=== PATIENT | male | born 1945 | race Caucasian/White ===

== ENCOUNTER 2023-06-01 19:50 | Observation (INO) | payer MEDICARE ==
--- NOTE | 2023-06-01 20:18 | ED ---
Abdominal Pain HPI - General Chief Complaint: Abdominal Pain Stated Complaint: Constipation unable to urinate Time Seen by Provider: 06/01/23 20:06 Source: patient Mode of arrival: ambulatory Limitations: no limitations - History of Present Illness Initial Comments: 78-year-old male presenting with chief complaint of constipation. Patient states that his last bowel movement was 4 days ago. He has been taking stool softeners at home with no relief. No nausea or vomiting. States that today he has not been able to urinate. No fevers or chills. No chest pain or difficulty breathing. - Related Data Home Medications Medication Instructions Recorded Confirmed Lovastatin [Mevacor] 10 mg PO HS 06/01/23 06/01/23 lisinopriL [Zestril] 10 mg PO DAILY 06/01/23 06/01/23 Allergies Allergy/AdvReac Type Severity Reaction Status Date / Time No Known Allergies Allergy Verified 06/01/23 22:27 Review of Systems ROS Statement: Those systems with pertinent positive or pertinent negative responses have been documented in the HPI. ROS Other: All systems not noted in ROS Statement are negative. Past Medical History Past Medical History: Hypertension Past Surgical History: Cholecystectomy Additional Past Surgical History / Comment(s): colonoscopy 04/2023 Smoking Status: Never smoker Past Alcohol Use History: None Reported Past Drug Use History: None Reported General Exam Limitations: no limitations General appearance: alert, in no apparent distress Head exam: Present: atraumatic, normocephalic Eye exam: Present: normal appearance Neck exam: Present: normal inspection Respiratory exam: Absent: respiratory distress GI/Abdominal exam: Present: soft. Absent: distended, tenderness, guarding, rebound, rigid Neurological exam: Present: alert, oriented X3 Psychiatric exam: Present: normal affect, normal mood Skin exam: Present: warm, dry Course Vital Signs 06/01/23 06/01/23 06/01/23 19:53 22:07 23:05 Temperature 98.0 F Pulse Rate 125 H 116 H 141 H Respiratory 18 18 16 Rate Blood Pressure 103/71 86/68 103/88 O2 Sat by Pulse 97 100 Oximetry 06/01/23 06/02/23 23:32 02:37 Temperature Pulse Rate 97 85 Respiratory 16 16 Rate Blood Pressure 91/60 85/63 O2 Sat by Pulse 98 97 Oximetry Medical Decision Making - Medical Decision Making Was pt. sent in by a medical professional or institution (LINDSAY Marcelo, DOORPERSON, urgent care, hospital, or half-way...) When possible be specific @ -No Did you speak to anyone other than the patient for history (EMS, parent, family, police, friend...)? What history was obtained from this source @ -No Did you review nursing and triage notes (agree or disagree)? Why? @ -I reviewed and agree with nursing and triage notes Were old charts reviewed (outside hosp., previous admission, EMS record, old EKG, old radiological studies, urgent care reports/EKG's, half-way records)? Report findings @ -No old charts were reviewed Differential Diagnosis (chest pain, altered mental status, abdominal pain women, abdominal pain men, vaginal bleeding, weakness, fever, dyspnea, syncope, headache, dizziness, GI bleed, back pain, seizure, CVA, palpatations, mental health, musculoskeletal)? @ -MDM Differential Abdominal Pain Men: Appendicitis, cholecystitis, diverticulosis, ischemic bowel, pancreatitis, hepatitis, UTI, gastroenteritis, AAA, incarcerated hernia, bowel obstruction, co nstipation, inflammatory bowel, hepatitis, peptic ulcer disease, splenic infarction, perforated viscus, testicular torsion... This is not meant to be an all-inclusive list EKG interpreted by me (3pts min.). @ -EKG shows atrial fibrillation with rapid ventricular response. Ventricular rate 110. VA interval indeterminable. QRS 99. QT 352. QTc 417. X-rays interpreted by me (1pt min.). @ -KUB x-ray shows nonspecific abdomen without evidence of free air or obstruction. Chest x-ray shows no acute cardiopulmonary process. CT interpreted by me (1pt min.). @ -None done U/S interpreted by me (1pt. min.). @ -None done What testing was considered but not performed or refused? (CT, X-rays, U/S, labs)? Why? @ -None What meds were considered but not given or refused? Why? @ -None Did you discuss the management of the patient with other professionals (professionals i.e. LINDSAY Marcelo, DOORPERSON, lab, RT, psych nurse, social media sr strategy manager, program services assistant, teacher, chief accounting officer, case aide)? Give summary @ -I spoke with Dalia Eason from [facility] who accepted admission Was smoking cessation discussed for >3mins.? @ -No Was critical care preformed (if so, how long)? @ -No Were there social determinants of health that impacted care today? How? (Homelessness, low income, unemployed, alcoholism, drug addiction, transportation, low edu. Level, literacy, decrease access to med. care, mcc, rehab)? @ -No Was there de-escalation of care discussed even if they declined (Discuss DNR or withdrawal of care, Hospice)? DNR status @ -No What co-morbidities impacted this encounter? (DM, HTN, Smoking, COPD, CAD, Canc er, CVA, ARF, Chemo, Hep., AIDS, mental health diagnosis, sleep apnea, morbid obesity)? @ -None Was patient admitted / discharged? Hospital course, mention meds given and route, prescriptions, significant lab abnormalities, going to OR and other pertinent info. @ -78-year-old male presenting with chief complaint of constipation. This has been ongoing for about 4 days. Today he was unable to urinate. Upon arrival the patient is tachycardic. EKG shows A-fib with RVR. Patient has no history of A-fib, he is not on any blood thinners or rate control medication. He is started on low-dose heparin. Bladder scan shows greater than 500 mL in the bladder. He is straight cathed and reports significant relief in symptoms. He is given an enema, does have a bowel movement. He will require admission for new onset A-fib. He is agreeable with this plan. I discussed this case with my attending Dr. Colvin Patient initially did not require any medication for rate control as he was maintaining in the 110s, however later in his course his heart rate increased to the 160s to 180s range. He was given 10 mg of Cardizem and started on a 5 mg/h Cardizem drip. Vital signs improved. Undiagnosed new problem with uncertain prognosis? @ -No Drug Therapy requiring intensive monitoring for toxicity (Heparin, Nitro, Insulin, Cardizem)? @ -Heparin and Cardizem Were any procedures done? @ -No Diagnosis/symptom? @ -New onset A-fib Acute, or Chronic, or Acute on Chronic? @ -Acute Uncomplicated (without systemic symptoms) or Complicated (systemic symptoms)? @ -Complicated Side effects of treatment? @ -No Exacerbation, Progression, or Severe Exacerbation? @ -No Poses a threat to life or bodily function? How? (Chest pain, [place], [place], pneumonia, PE, COPD, DKA, ARF, appy, cholecystitis, CVA, Diverticulitis, Homicidal, Suicidal, threat to staff... and all critical care pts) @ -Yes - Lab Data Result diagrams: 06/01/23 21:06 06/01/23 21:06 Lab Results 06/01/23 06/01/23 06/01/23 Range/Units 21:06 21:06 21:06 WBC 11.3 H (3.8-10.6) k/uL RBC 5.47 (4.30-5.90) m/uL Hgb 16.3 (13.0-17.5) gm/dL Hct 49.4 (39.0-53.0) % MCV 90.2 (80.0-100.0) fL MCH 29.7 (25.0-35.0) pg MCHC 33.0 (31.0-37.0) g/dL RDW 13.6 (11.5-15.5) % Plt Count 264 (150-450) k/uL MPV 7.2 Neutrophils % 83 % Lymphocytes % 8 % Monocytes % 7 % Eosinophils % 1 % Basophils % 0 % Neutrophils # 9.4 H (1.3-7.7) k/uL Lymphocytes # 0.9 L (1.0-4.8) k/uL Monocytes # 0.8 (0-1.0) k/uL Eosinophils # 0.1 (0-0.7) k/uL Basophils # 0.1 (0-0.2) k/uL Sodium 136 L (137-145) mmol/L Potassium 4.1 (3.5-5.1) mmol/L Chloride 104 (98-107) mmol/L Carbon Dioxide 19 L (22-30) mmol/L Anion Gap 13 mmol/L BUN 15 (9-20) mg/dL Creatinine 0.68 (0.66-1.25) mg/dL Est GFR (CKD-EPI)AfAm >90 (>60 ml/min/1.73 sqM) Est GFR (CKD-EPI)NonAf >90 (>60 ml/min/1.73 sqM) Glucose 115 H (74-99) mg/dL Calcium 9.4 (8.4-10.2) mg/dL Total Bilirubin 1.6 H (0.2-1.3) mg/dL AST 34 (17-59) U/L ALT 19 (4-49) U/L Alkaline Phosphatase 77 (38-126) U/L Troponin I <0.012 (0.000-0.034) ng/mL NT-Pro-B Natriuret Pep 51 pg/mL Total Protein 7.3 (6.3-8.2) g/dL Albumin 4.3 (3.5-5.0) g/dL TSH 1.760 (0.465-4.680) mIU/L Urine Color Urine Appearance (Clear) Urine pH (5.0-8.0) Ur Specific Hope (1.001-1.035) Urine Protein (Negative) Urine Glucose (UA) (Negative) Urine Ketones (Negative) Urine Blood (Negative) Urine Nitrite (Negative) Urine Bilirubin (Negative) Urine Urobilinogen (<2.0) mg/dL Ur Leukocyte Esterase (Negative) 06/01/23 Range/Units 21:56 WBC (3.8-10.6) k/uL RBC (4.30-5.90) m/uL Hgb (13.0-17.5) gm/dL Hct (39.0-53.0) % MCV (80.0-100.0) fL MCH (25.0-35.0) pg MCHC (31.0-37.0) g/dL RDW (11.5-15.5) % Plt Count (150-450) k/uL MPV Neutrophils % % Lymphocytes % % Monocytes % % Eosinophils % % Basophils % % Neutrophils # (1.3-7.7) k/uL Lymphocytes # (1.0-4.8) k/uL Monocytes # (0-1.0) k/uL Eosinophils # (0-0.7) k/uL Basophils # (0-0.2) k/uL Sodium (137-145) mmol/L Potassium (3.5-5.1) mmol/L Chloride (98-107) mmol/L Carbon Dioxide (22-30) mmol/L Anion Gap mmol/L BUN (9-20) mg/dL Creatinine (0.66-1.25) mg/dL Est GFR (CKD-EPI)AfAm (>60 ml/min/1.73 sqM) Est GFR (CKD-EPI)NonAf (>60 ml/min/1.73 sqM) Glucose (74-99) mg/dL Calcium (8.4-10.2) mg/dL Total Bilirubin (0.2-1.3) mg/dL AST (17-59) U/L ALT (4-49) U/L Alkaline Phosphatase (38-126) U/L Troponin I (0.000-0.034) ng/mL NT-Pro-B Natriuret Pep pg/mL Total Protein (6.3-8.2) g/dL Albumin (3.5-5.0) g/dL TSH (0.465-4.680) mIU/L Urine Color Light Yellow Urine Appearance Clear (Clear) Urine pH 6.0 (5.0-8.0) Ur Specific Hope 1.015 (1.001-1.035) Urine Protein Negative (Negative) Urine Glucose (UA) Negative (Negative) Urine Ketones Trace H (Negative) Urine Blood Negative (Negative) Urine Nitrite Negative (Negative) Urine Bilirubin Negative (Negative) Urine Urobilinogen <2.0 (<2.0) mg/dL Ur Leukocyte Esterase Negative (Negative) Disposition Clinical Impression: New onset a-fib Disposition: ADMITTED IP TO THIS HOSP Condition: Fair Time of Disposition: 22:21
--- NOTE | 2023-06-01 20:50 | XR ---
KUB. HISTORY: Abdominal pain. COMPARISON: None. TECHNIQUE: 2 upright views the abdomen obtained FINDINGS: The lung bases are clear. There is no free intraperitoneal air beneath the diaphragm. The bowel gas pattern is nonspecific and there is no evidence of obstruction. No suspicious abdominal or pelvic calcifications are seen. There are clips in the right upper quadrant consistent with cholecystectomy. There is moderate dextrorotary scoliosis of the lumbar spine. 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 IMPRESSION: Nonspecific abdomen without evidence of free air or obstruction.
[2023-06-01 21:16] LABS: Basophils # (A) 0.1 k/uL (0-0.2); Basophils % (A) 0 %; Eosinophils # (A) 0.1 k/uL (0-0.7); Eosinophils % (A) 1 %; HCT 49.4 % (39.0-53.0); HGB 16.3 gm/dL (13.0-17.5); Lymphocytes # (A) 0.9 k/uL (1.0-4.8); Lymphocytes % (A) 8 %; MCH 29.7 pg (25.0-35.0); MCV 90.2 fL (80.0-100.0); Mean Platelet Volume 7.2; Monocytes # (A) 0.8 k/uL (0-1.0); Monocytes % (A) 7 %; Neutrophils # (A) 9.4 k/uL (1.3-7.7); Neutrophils % (A) 83 %; Platelet Count 264 k/uL (150-450); RBC 5.47 m/uL (4.30-5.90); RDW 13.6 % (11.5-15.5); WBC 11.3 k/uL (3.8-10.6)
[2023-06-01 21:25] LABS: ALT 19 U/L (4-49); African American GFR (CKD) >90 (>60 ml/min/1.73 sqM); Albumin 4.3 g/dL (3.5-5.0); Anion Gap 13 mmol/L; Blood Urea Nitrogen 15 mg/dL (9-20); Calcium 9.4 mg/dL (8.4-10.2); Carbon Dioxide 19 mmol/L (22-30); Chloride 104 mmol/L (98-107); Glucose 115 mg/dL (74-99); Non-African American GFR(CKD) >90 (>60 ml/min/1.73 sqM); Sodium 136 mmol/L (137-145); Total Bilirubin 1.6 mg/dL (0.2-1.3); Total Protein 7.3 g/dL (6.3-8.2)
--- NOTE | 2023-06-01 21:25 | XR ---
EXAMINATION TYPE: XR chest 2V DATE OF EXAM: 06/01/2023 COMPARISON: NONE HISTORY: New onset atrial fibrillation TECHNIQUE: Frontal and lateral views of the chest are obtained. FINDINGS: There is no focal air space opacity, pleural effusion, or pneumothorax seen. The cardiac silhouette size is within normal limits. The osseous structures are intact. IMPRESSION: No acute cardiopulmonary process.
[2023-06-01 21:28] LABS: AST 34 U/L (17-59); Alkaline Phosphatase 77 U/L (38-126); Potassium 4.1 mmol/L (3.5-5.1)
[2023-06-01 21:34] LABS: NT-Pro-B-Type Natriuretic Pept 51 pg/mL
[2023-06-01] MEDS: SODIUM CHLORIDE 0.9% 500 ML 500 ML IV ONE (21:48)
[2023-06-01 22:08] LABS: Appearance,Urine Clear (Clear); Bilirubin,Urine Negative (Negative); Blood,Urine Negative (Negative); Color,Urine Light Yellow; Glucose,Urine (UA) Negative (Negative); Ketones,Urine Trace (Negative); Leukocyte Esterase,Urine Negative (Negative); Nitrite,Urine Negative (Negative); Protein,Urine Negative (Negative); Specific Gravity,Urine 1.015 (1.001-1.035); Urobilinogen,Urine <2.0 mg/dL (<2.0)
[2023-06-01] MEDS: SODIUM CHLORIDE 0.9% 1,000 ML IV STA (22:11)
[2023-06-01] MEDS ORDERED: HEPARIN SODIUM 1,000 UN/ML (10ML VL) IV PRN (22:11)
[2023-06-01] MEDS ORDERED: NALOXONE 0.4 MG/ML 1 ML VIAL IV PRN (22:27)
[2023-06-01] MEDS: HEPARIN SOD,PORK IN 0.45% NACL 25,000 UNIT in 0.45% NACL 1 250ML.BAG IV SCH (22:49)
[2023-06-01] MEDS: HEPARIN SODIUM 1,000 UN/ML (10ML VL) IV ONE (22:54)
[2023-06-01] MEDS: DILTIAZEM 125 MG in SODIUM CHLORIDE 0.9% 100 ML IV SCH (22:55)
[2023-06-01] MEDS: SODIUM CHLORIDE 0.9% 1,000 ML IV SCH (23:05)
[2023-06-01 23:07] LABS: Partial Thromboplastin Time 23.1 sec (22.0-30.0)
[2023-06-01] MEDS: DILTIAZEM DRIP BOLUS FROM BAG 1 MG SOLN IV ONE (23:27)
[2023-06-02 06:18] LABS: INR 1.1 (<1.2); Partial Thromboplastin Time 50.6 sec (22.0-30.0)
[2023-06-02 10:05] LABS: Basophils % (A) 1 %; Eosinophils # (A) 0.1 k/uL (0-0.7); Eosinophils % (A) 1 %; HCT 43.1 % (39.0-53.0); HGB 14.2 gm/dL (13.0-17.5); Lymphocytes # (A) 1.7 k/uL (1.0-4.8); Lymphocytes % (A) 18 %; MCH 30.5 pg (25.0-35.0); MCV 92.7 fL (80.0-100.0); Mean Platelet Volume 7.7; Monocytes # (A) 0.8 k/uL (0-1.0); Monocytes % (A) 9 %; Neutrophils # (A) 6.5 k/uL (1.3-7.7); Neutrophils % (A) 70 %; Platelet Count 238 k/uL (150-450); RBC 4.65 m/uL (4.30-5.90); RDW 13.5 % (11.5-15.5); WBC 9.3 k/uL (3.8-10.6)
[2023-06-02] MEDS: DOCUSATE 100 MG CAP PO SCH (12:23)
[2023-06-02] MEDS: APIXABAN 5 MG TAB PO SCH (12:24)
[2023-06-02] MEDS: polyethylene glycoL 3350 17 GM POWD.PACK PO SCH (12:24)
[2023-06-02] MEDS: METOPROLOL TARTRATE 25 MG TAB PO SCH (12:24)
--- NOTE | 2023-06-02 12:48 | P.CRDCN ---
History of Present Illness History of present illness: HISTORY OF PRESENT ILLNESS: This is a 78-year-old male with a past medical history significant for hypertension and hyperlipidemia. Patient does not follow with a education department registrar. We have been asked to see the patient in consultation for new onset atrial fibrillation. Patient examined at the bedside. Patient initially presented to the hospital with a chief complaint of constipation and inability to urinate. Patient denies having any chest pain or pressure. He denies any shortness of breath. He denies having any palpitations. Initial EKG completed reveals sinus mechanism with PACs. Review of telemetry overnight did reveal episodes of atrial fibrillation. Bedside telemetry at the time of examination reveals sinus mechanism with a heart rate in the 70s. DIAGNOSTICS: - EKG reveals sinus mechanism with PVCs. Remote telemetry from overnight does reveal episodes of atrial fibrillation. - Chest xray negative for acute process - Laboratory data: WBC 11.3. Hemoglobin 16.3. Platelet count 264. Sodium 136. Potassium 4.1. BUN 15. Creatinine 0.68. Troponin negative x 1. proBNP 51. TSH 1.760. - Current home cardiac medications include lisinopril 10 mg daily and lovastatin 10 mg at night. - No previous echocardiogram, stress test, or cardiac catheterization available in EMR for review REVIEW OF SYSTEMS: At the time of my exam: CONSTITUTIONAL: Denies fever or chills. HEENT: Denies blurred vision, vision changes, or eye pain. Denies hemoptysis CARDIOVASCULAR: Denies chest pain. Denies orthopnea. Denies PND. Denies palpitations RESPIRATORY: Denies shortness of breath. GASTROINTESTINAL: Denies abdominal pain. Denies nausea or vomiting. HEMATOLOGIC: Denies bleeding disorders. GENITOURINARY: Denies any blood in urine. SKIN: Denies pruitis. Denies rash. PHYSICAL EXAM: VITAL SIGNS: Reviewed. GENERAL: Well-developed in no acute distress. HEENT: Head is normocephalic. Pupils are equal, round. Sclerae anicteric. Mucous membranes of the mouth are moist. Neck supple. No JVD or thyromegaly LUNGS: Respirations even and unlabored. Lungs essentially clear to auscultation bilaterally. HEART: Regular rate and rhythm. S1 and S2 heard. ABDOMEN: Soft. Nondistended. Nontender. EXTREMITIES: Normal range of motion. No clubbing or cyanosis. Peripheral pulses intact. No lower extremity edema NEUROLOGIC: Awake and alert. Oriented x 3. ASSESSMENT: New onset paroxysmal atrial fibrillation, currently maintaining sinus mechanism Sinus mechanism with PACs Constipation Urinary retention Hypertension Hyperlipidemia PLAN: Obtain 2D echo to assess cardiac structure and function Continue telemetry monitoring TSH checked and within normal limits Hold lisinopril secondary to soft blood pressures Discontinue IV heparin Begin Eliquis 5 mg twice a day Discontinue IV Cardizem Begin metoprolol tartrate 25 mg twice a day Patient may be discharged home this afternoon from a cardiac standpoint He is to follow-up postdischarge with Dr. Mathews Further recommendations pending patient course Nurse practitioner note has been reviewed by physician. Signing provider agrees with the documented findings, assessment, and plan of care documented by EMBOSSER APPRENTICE as a scribe. Past Medical History Past Medical History: Hypertension Past Surgical History: Cholecystectomy Additional Past Surgical History / Comment(s): colonoscopy 04/2023 Smoking Status: Never smoker Past Alcohol Use History: None Reported Past Drug Use History: None Reported Medications and Allergies Home Medications Medication Instructions Recorded Confirmed Type Lovastatin [Mevacor] 10 mg PO HS 06/01/23 06/01/23 History Allergies Allergy/AdvReac Type Severity Reaction Status Date / Time No Known Allergies Allergy Verified 06/01/23 22:27 Physical Exam Vitals: Vital Signs Temp Pulse Resp BP Pulse Ox 06/02/23 07:24 98.2 F 94 14 96/61 97 06/02/23 06:04 93 16 103/68 96 06/02/23 03:50 85 16 90/61 97 06/02/23 02:37 85 16 85/63 97 06/01/23 23:32 97 16 91/60 98 06/01/23 23:05 141 H 16 103/88 06/01/23 22:07 116 H 18 86/68 100 06/01/23 19:53 98.0 F 125 H 18 103/71 97 Intake and Output 06/01/23 06/02/23 06/02/23 22:59 06:59 14:59 Output Total 1429 450 Balance -1429 -450 Output: Urine 700 450 Straight 700 Uretheral (Black) 450 Post Void Residual 729 Other: Voiding Method Diaper Weight 82.554 kg Results 06/02/23 07:32 06/01/23 21:06 Cardiac Enzymes 06/01/23 06/01/23 Range/Units 21:06 21:06 AST 34 (17-59) U/L Troponin I <0.012 (0.000-0.034) ng/mL Coagulation 06/01/23 06/02/23 Range/Units 22:43 04:11 PT 11.0 12.0 (10.0-12.5) sec APTT 23.1 50.6 H (22.0-30.0) sec CBC 06/01/23 Range/Units 21:06 WBC 11.3 H (3.8-10.6) k/uL RBC 5.47 (4.30-5.90) m/uL Hgb 16.3 (13.0-17.5) gm/dL Hct 49.4 (39.0-53.0) % Plt Count 264 (150-450) k/uL Comprehensive Metabolic Panel 06/01/23 Range/Units 21:06 Sodium 136 L (137-145) mmol/L Potassium 4.1 (3.5-5.1) mmol/L Chloride 104 (98-107) mmol/L Carbon Dioxide 19 L (22-30) mmol/L BUN 15 (9-20) mg/dL Creatinine 0.68 (0.66-1.25) mg/dL Glucose 115 H (74-99) mg/dL Calcium 9.4 (8.4-10.2) mg/dL AST 34 (17-59) U/L ALT 19 (4-49) U/L Alkaline Phosphatase 77 (38-126) U/L Total Protein 7.3 (6.3-8.2) g/dL Albumin 4.3 (3.5-5.0) g/dL Current Medications Generic Name Dose Route Start Last Admin Trade Name Freq PRN Reason Stop Dose Admin Heparin Sodium (Porcine) 0 unit 06/01/23 22:11 Heparin Sodium 1,000 Un/Ml (10ml Vl) IV PER PROTOCOL PRN Low PTT Protocol Heparin Sodium/Sodium Chloride 250 mls @ 9.906 mls/hr 06/01/23 22:15 06/01/23 22:49 25,000 unit/ Sodium Chloride IV 12 units/kg/hr .Q24H [place] 9.906 mls/hr Administration Protocol 12 UNITS/KG/HR Sodium Chloride 1,000 mls @ 130 mls/hr 06/01/23 22:30 06/02/23 08:08 Saline 0.9% IV 130 mls/hr .Q7H42M [place] Administration Diltiazem HCl 125 mg/ Sodium 125 mls @ 5 mls/hr 06/01/23 22:30 06/01/23 22:55 Chloride IV 5 mg/hr .Q24H [place] 5 mls/hr Administration 5 MG/HR Naloxone HCl 0.2 mg 06/01/23 22:27 Naloxone 0.4 Mg/Ml 1 Ml Vial IV Q2M PRN Opioid Reversal Intake and Output 06/01/23 06/02/23 06/02/23 22:59 06:59 14:59 Output Total 1429 450 Balance -1429 -450 Output: Urine 700 450 Straight 700 Uretheral (Black) 450 Post Void Residual 729 Other: Voiding Method Diaper Weight 82.554 kg 06/01/23 21:06 06/01/23 21:06
--- NOTE | 2023-06-02 13:36 | P.HPIM ---
History of Present Illness H&P Date: 06/02/23 History of present illness; patient is a 78-year-old gentleman past medical history significant for hypertension, hyperlipidemia who was brought to the ER for constipation. Patient stated that he was all right 4 days back when he started noticing that he was getting constipation. Patient was passing gas but not having any bowel movement. There was no complaint of abdominal pain. Patient denies any nausea or vomiting. Patient was also having a hard time peeing. There was no complaint of burning micturition. Patient did use elak-eki-mdykept stool softeners without any success. Because of this, patient came to the ER Initial lab work done in the ER showed WBC 11.3, hemoglobin 16.3, platelet count 264, sodium 136, potassium 4.1, BUN 15, creatinine 0.68, troponin 0.012 UA negative for any infection EKG done in the ER showed heart rate of 110, no P waves, irregular, no ST segment elevation or depression seen, no T-wave inversions seen. Chest x-ray done in the ER showed no acute cardiopulmonary process X-ray KUB done showed nonspecific abdomin without evidence of free air or obstruction Patient admitted to internal medicine service REVIEW OF SYSTEMS: CONSTITUTIONAL: No fever, no malaise, no fatigue. HEENT: No recent visual problems or hearing problems. Denied any sore throat. CARDIOVASCULAR: No chest pain, orthopnea, PND, no palpitations, no syncope. PULMONARY: No shortness of breath, no cough, no hemoptysis. GASTROINTESTINAL: As mentioned above NEUROLOGICAL: No headaches, no weakness, no numbness. HEMATOLOGICAL: Denies any bleeding or petechiae. GENITOURINARY: Denies any burning micturition, frequency, or urgency. MUSCULOSKELETAL/RHEUMATOLOGICAL: Denies any joint pain, swelling, or any muscle pain. ENDOCRINE: Denies any polyuria or polydipsia. The rest of the 14-point review of systems is negative. PHYSICAL EXAMINATION: GENERAL: The patient is alert and oriented x3, not in any acute distress. Well developed, well nourished. HEENT: Pupils are round and equally reacting to light. EOMI. No scleral icterus. No conjunctival pallor. Normocephalic, atraumatic. No pharyngeal erythema. No thyromegaly. CARDIOVASCULAR: S1 and S2 present. No murmurs, rubs, or gallops. irRegular rate and rhythm PULMONARY: Chest is clear to auscultation, no wheezing or crackles. ABDOMEN: Soft, nontender, nondistended, normoactive bowel sounds. No palpable organomegaly. MUSCULOSKELETAL: No joint swelling or deformity. EXTREMITIES: No cyanosis, clubbing, or pedal edema. NEUROLOGICAL: Gross neurological examination did not reveal any focal deficits. SKIN: No rashes. Assessment and plan Paroxysmal atrial fibrillation Constipation Hypertension Hyperlipidemia Monitor vital signs Monitor CBC Monitor CMP Continue telemetry monitoring Trend troponin. Ordered 2D echo Continue pharmacy to dose heparin Continue Cardizem drip Aggressive bowel regimen Consult cardiology Labs and medication were reviewed.. Continue same treatment. Continue with symptomatic treatment. Resume home medication. Monitor labs and vitals. DVT and GI prophylaxis. Further recommendations as per clinical course of the patient Dictation was produced using [employer] dictation software. please excuse any grammatical, word or spelling errors. Past Medical History Past Medical History: Hypertension Past Surgical History: Cholecystectomy Additional Past Surgical History / Comment(s): colonoscopy 04/2023 Smoking Status: Never smoker Past Alcohol Use History: None Reported Past Drug Use History: None Reported Medications and Allergies Home Medications Medication Instructions Recorded Confirmed Type Lovastatin [Mevacor] 10 mg PO HS 06/01/23 06/01/23 History Allergies Allergy/AdvReac Type Severity Reaction Status Date / Time No Known Allergies Allergy Verified 06/01/23 22:27 Physical Exam Vitals: Vital Signs Temp Pulse Resp BP Pulse Ox 06/02/23 11:01 98.0 F 64 16 99/62 96 06/02/23 07:24 98.2 F 94 14 96/61 97 06/02/23 06:04 93 16 103/68 96 06/02/23 03:50 85 16 90/61 97 06/02/23 02:37 85 16 85/63 97 06/01/23 23:32 97 16 91/60 98 06/01/23 23:05 141 H 16 103/88 06/01/23 22:07 116 H 18 86/68 100 06/01/23 19:53 98.0 F 125 H 18 103/71 97 Intake and Output 06/01/23 06/02/23 06/02/23 22:59 06:59 14:59 Output Total 1429 450 Balance -1429 -450 Output: Urine 700 450 Straight 700 Uretheral (Black) 450 Post Void Residual 729 Other: Voiding Method Diaper Weight 82.554 kg Results CBC & Chem 7: 06/02/23 07:32 06/01/23 21:06 Labs: Abnormal Lab Results - Last 24 Hours (Table) 06/01/23 06/01/23 06/01/23 Range/Units 21:06 21:06 21:56 WBC 11.3 H (3.8-10.6) k/uL Neutrophils # 9.4 H (1.3-7.7) k/uL Lymphocytes # 0.9 L (1.0-4.8) k/uL APTT (22.0-30.0) sec Sodium 136 L (137-145) mmol/L Carbon Dioxide 19 L (22-30) mmol/L Glucose 115 H (74-99) mg/dL Total Bilirubin 1.6 H (0.2-1.3) mg/dL Urine Ketones Trace H (Negative) 06/02/23 Range/Units 04:11 WBC (3.8-10.6) k/uL Neutrophils # (1.3-7.7) k/uL Lymphocytes # (1.0-4.8) k/uL APTT 50.6 H (22.0-30.0) sec Sodium (137-145) mmol/L Carbon Dioxide (22-30) mmol/L Glucose (74-99) mg/dL Total Bilirubin (0.2-1.3) mg/dL Urine Ketones (Negative)
[2023-06-02] MEDS: ATORVASTATIN 40 MG TAB PO SCH (20:17)
[2023-06-02] MEDS ORDERED: ATORVASTATIN 10 MG TAB PO SCH (21:00)
--- NOTE | 2023-06-03 02:22 | CA ---
Transthoracic Echo Report Name: Demond Easton Age: 78 Gender: M : 1945 Exam Date: 06/02/2023 10:34 Exam Location: [facility] Ht (in): 68 Wt (lb): 182 Ordering Physician: Helga Rankin Attending/Referring Phys: [employer] Susan Melendez RDCS Procedure CPT: Indications: LV function Cardiac Hx: Technical Quality: Contrast 1: Definity Total Dose (mL): 2 Contrast 2: Total Dose (mL): MEASUREMENTS (Male / Female) Normal Values 2D ECHO LV Diastolic Diameter PLAX 3.6 cm 4.2 - 5.9 / 3.9 - 5.3 cm LV Systolic Diameter PLAX 2.7 cm IVS Diastolic Thickness 0.9 cm 0.6 - 1.0 / 0.6 - 0.9 cm LVPW Diastolic Thickness 1.0 cm 0.6 - 1.0 / 0.6 - 0.9 cm LV Relative Wall Thickness 0.5 LVOT Diameter 1.9 cm Aortic Root Diameter 4.1 cm LA Systolic Diameter LX 3.6 cm 3.0 - 4.0 / 2.7 - 3.8 cm DOPPLER AV Peak Velocity 159.4 cm/s AV Peak Gradient 10.2 mmHg AV Mean Velocity 102.4 cm/s AV Mean Gradient 4.8 mmHg AV Velocity Time Integral 29.8 cm LVOT Peak Velocity 123.3 cm/s LVOT Peak Gradient 6.1 mmHg LVOT Velocity Time Integral 24.3 cm LVOT Stroke Volume 69.9 cm??? LVOT Stroke Volume Index 35.6 ml/m??? AV Area Cont Eq vti 2.3 cm??? AV Area Cont Eq pk 2.2 cm??? Mitral E Point Velocity 68.3 cm/s Mitral A Point Velocity 76.3 cm/s Mitral E to A Ratio 0.9 MV Deceleration Time 230.9 ms MV E' Velocity 12.6 cm/s Mitral E to MV E' Ratio 5.4 TR Peak Velocity 201.7 cm/s TR Peak Gradient 16.3 mmHg PV Peak Velocity 67.8 cm/s PV Peak Gradient 1.8 mmHg FINDINGS Left Ventricle Normal Left ventricular size, wall thickness, systolic function with no obvious regional wall motion abnormalities. Normal Left ventricular diastolic filling pattern. Left ventricular ejection fraction is estimated at 55%. Right Ventricle Normal right ventricular size. Unable to estimate the right ventricular systolic pressure. Right Atrium Normal right atrial size. Left Atrium Normal left atrial size. Mitral Valve No mitral regurgitation. Aortic Valve Aortic valve not well visualized. Tricuspid Valve Mild tricuspid regurgitation. Pulmonic Valve Pulmonic valve not well visualized. Pericardium No pericardial effusion. Aorta Normal size aortic root. CONCLUSIONS Technically difficult study Left ventricular ejection fraction 55% No mitral regurgitation Mild tricuspid regurgitation RVSP 16 Previewed by: Dr. Julian Mathews DO (Electronically Signed) Final Date: 03 June 2023 02:21
--- NOTE | 2023-06-03 12:34 | P.GSCN ---
History of Present Illness Consult date: 06/03/23 History of present illness: 78-year-old gentleman was brought into the hospital for constipation. He has cardiac issues. I was asked to see the patient for urinary retention. The patient is interviewed at the bedside. Historically the patient states that for the last 6 months he has had problems urinating. He has had urgent urination, postvoid dribbling and urgency incontinence. He has been wearing a depends. Had any treatment for this problem to date. He was catheterized for 450 mL of urine and felt relief. His constipation has been relieved. There is no family history of prostate problems. He states that he has had a PSA in the past and has never been told that it was abnormal. There is no history urine infection. There is no family history of prostate problems. His urine is clear. He has not had a prostate examination some time. He has never seen a urologist. Review of Systems All systems: negative - Constitutional Denies fever, Denies weight loss - EENT Eyes: denies blurred vision Ears, nose, mouth and throat: Denies dysphagia - Cardiovascular Denies chest pain, Denies shortness of breath - Respiratory Denies cough, Denies 7 - Gastrointestinal Reports as per HPI - Genitourinary Denies dysuria, Denies hematuria - Integumentary Denies rash, Denies unusual bruising - Neurological Denies headaches, Denies syncope - Hematologic/Lymphatic Denies easy bleeding, Denies easy bruising 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 History of Any Multi-Drug Resistant Organisms: None Reported Past Surgical History: Cholecystectomy, Hernia Repair, Orthopedic Surgery Additional Past Surgical History / Comment(s): colonoscopy 04/2023, back surgery x2, rhinoplasty Past Anesthesia/Blood Transfusion Reactions: No Reported Reaction Past Psychological History: No Psychological Hx Reported Smoking Status: Never smoker Past Alcohol Use History: None Reported Past Drug Use History: None Reported - Past Family History Father Family Medical History: Cancer Additional Family Medical History / Comment(s): jaw CA Mother Family Medical History: Cancer Additional Family Medical History / Comment(s): uterine CA Medications and Allergies Home Medications Medication Instructions Recorded Confirmed Type Lovastatin [Mevacor] 10 mg PO HS 06/01/23 06/01/23 History Allergies Allergy/AdvReac Type Severity Reaction Status Date / Time No Known Allergies Allergy Verified 06/01/23 22:27 Surgical - Exam Vital Signs Temp Pulse Resp BP Pulse Ox 98.0 F 125 H 18 103/71 97 06/01/23 19:53 06/01/23 19:53 06/01/23 19:53 06/01/23 19:53 06/01/23 19:53 - General well developed, well nourished, no distress - Eyes normal ocular movement, no icteric - ENT no hearing loss, no congestion - Neck no masses, trachea midline - Respiratory normal respiratory effort, clear to auscultation - Abdomen Abdomen: soft, non tender, no guarding, no rigid, no rebound - Genitourinary Indwelling catheter. 20-30 g benign prostate - Integumentary no rash, no abnormal pigmentation - Neurologic no disoriented, no combative - Psychiatric oriented to time, oriented to person, oriented to place, speech is normal, memory intact Results - Labs 06/02/23 07:32 06/01/23 21:06 Assessment and Plan Assessment: Impression: Constipation. Urinary retention. Cardiac issues. BPH with obstruction Recommendations: I will start the patient on tamsulosin. The catheter can be removed in 2-3 days for voiding trial. It sounds as if he is a chronic outlet obstruction will benefit from the tamsulosin if he is able to urinate which I suspect he will. We will follow with you.
[2023-06-03 12:53] VITALS: RESP 16
--- NOTE | 2023-06-03 14:11 | P.PN ---
Subjective Progress Note Date: 06/03/23 patient is a 78-year-old gentleman past medical history significant for hypertension, hyperlipidemia who was brought to the ER for constipation. Patient stated that he was all right 4 days back when he started noticing that he was getting constipation. Patient was passing gas but not having any bowel movement. There was no complaint of abdominal pain. Patient denies any nausea or vomiting. Patient was also having a hard time peeing. There was no complaint of burning micturition. Patient did use [id number] stool softeners without any success. Because of this, patient came to the ER Initial lab work done in the ER showed WBC 11.3, hemoglobin 16.3, platelet count 264, sodium 136, potassium 4.1, BUN 15, creatinine 0.68, troponin 0.012 UA negative for any infection EKG done in the ER showed heart rate of 110, no P waves, irregular, no ST segment elevation or depression seen, no T-wave inversions seen. Chest x-ray done in the ER showed no acute cardiopulmonary process X-ray KUB done showed nonspecific abdomin without evidence of free air or obstruction Patient admitted to internal medicine service 06/02. Patient seen and examined blood work done this morning showed WBC 9.3, hemoglobin 14.2, platelet count 238. 2D echo done showed LVEF of 55%, no mitral regurg, mild tricuspid regurg .denies any palpitation. Patient had complained of urine retention, had a Black placed. REVIEW OF SYSTEMS: CONSTITUTIONAL: No fever, no malaise,. CARDIOVASCULAR: No chest pain, no palpitations, no syncope. PULMONARY: No shortness of breath, no cough, GASTROINTESTINAL: No diarrhea, no nausea, no vomiting, no abdominal pain. NEUROLOGICAL: No headaches, no weakness, PHYSICAL EXAMINATION: GENERAL: The patient is alert and oriented x3, not in any acute distress. Well developed, well nourished. HEENT: Pupils are round and equally reacting to light. EOMI. No scleral icterus. No conjunctival pallor. Normocephalic, atraumatic. No pharyngeal erythema. No thyromegaly. CARDIOVASCULAR: S1 and S2 present. No murmurs, rubs, or gallops. PULMONARY: Chest is clear to auscultation, no wheezing or crackles. ABDOMEN: Soft, nontender, nondistended, normoactive bowel sounds. No palpable or ganomegaly. MUSCULOSKELETAL: No joint swelling or deformity. EXTREMITIES: No cyanosis, clubbing, or pedal edema. NEUROLOGICAL: Gross neurological examination did not reveal any focal deficits. SKIN: No rashes. Assessment and plan Paroxysmal atrial fibrillation Constipation Hypertension Hyperlipidemia Urinary retention Monitor vital signs Monitor CBC Monitor CMP Continue telemetry monitoring Trend troponin. 2D echo done showed LVEF of 55%, no mitral regurg, mild tricuspid regurg Continue Eliquis Continue Lopressor Aggressive bowel regimen Cardiology following Urology consulted Labs and medication were reviewed.. Continue same treatment. Continue with symptomatic treatment. Resume home medication. Monitor labs and vitals. DVT and GI prophylaxis. Further recommendations as per clinical course of the patient Dictation was produced using [employer] dictation software. please excuse any grammatical, word or spelling errors. Objective - Vital Signs Vital signs: Vital Signs Temp 98.3 F 06/03/23 03:27 Pulse 67 06/03/23 03:27 Resp 15 06/03/23 03:27 BP 104/62 06/03/23 03:27 Pulse Ox 94 L 06/03/23 03:27 FiO2 Intake & Output 06/02/23 06/03/23 06/03/23 18:59 06:59 18:59 Intake Total 476 Output Total 1100 Balance -1100 476 Weight 82.554 kg Intake: Oral 476 Output: Urine 1100 Other: Voiding Method Indwelling Catheter Indwelling Catheter - Labs CBC & Chem 7: 06/02/23 07:32 06/01/23 21:06
--- NOTE | 2023-06-03 14:32 | P.PN ---
Subjective Progress Note Date: 06/03/23 HISTORY OF PRESENT ILLNESS: This is a 78-year-old male with a past medical history significant for hype rtension and hyperlipidemia. 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 We have been asked to see the patient in consultation for new onset atrial fibrillation. Patient examined at the bedside. Patient initially presented to the hospital with a chief complaint of constipation and inability to urinate. Patient denies having any chest pain or pressure. He denies any shortness of breath. He denies having any palpitations. Initial EKG completed reveals sinus mechanism with PACs. Review of telemetry overnight did reveal episodes of atrial fibrillation. Bedside telemetry at the time of examination reveals sinus mechanism with a heart rate in the 70s. DIAGNOSTICS: - EKG reveals sinus mechanism with PVCs. Remote telemetry from overnight does reveal episodes of atrial fibrillation. - Chest xray negative for acute process - Laboratory data: WBC 11.3. Hemoglobin 16.3. Platelet count 264. Sodium 136. Potassium 4.1. BUN 15. Creatinine 0.68. Troponin negative x 1. proBNP 51. TSH 1.760. - Current home cardiac medications include lisinopril 10 mg daily and lovastatin 10 mg at night. - No previous echocardiogram, stress test, or cardiac catheterization available in EMR for review 06/03/2023 He does not feel any a-fib. Heart rates controlled. He is feeling well today. ECHO shows EF 55%, mild tricuspid regurgitation. REVIEW OF SYSTEMS: At the time of my exam: CONSTITUTIONAL: Denies fever or chills. HEENT: Denies blurred vision, vision changes, or eye pain. Denies hemoptysis CARDIOVASCULAR: Denies chest pain. Denies orthopnea. Denies PND. Denies palpitations RESPIRATORY: Denies shortness of breath. GASTROINTESTINAL: Denies abdominal pain. Denies nausea or vomiting. HEMATOLOGIC: Denies bleeding disorders. GENITOURINARY: Denies any blood in urine. SKIN: Denies pruitis. Denies rash. PHYSICAL EXAM: VITAL SIGNS: Reviewed. GENERAL: Well-developed in no acute distress. HEENT: Head is normocephalic. Pupils are equal, round. Sclerae anicteric. Mucous membranes of the mouth are moist. Neck supple. LUNGS: Respirations even and unlabored. Lungs essentially clear to auscultation bilaterally. HEART: Regular rate and rhythm. S1 and S2 heard. ABDOMEN: Soft. Nondistended. Nontender. EXTREMITIES: Normal range of motion. No clubbing or cyanosis. Peripheral pulses intact. No lower extremity edema NEUROLOGIC: Awake and alert. Oriented x 3. ASSESSMENT: New onset paroxysmal atrial fibrillation, currently maintaining sinus mechanism Sinus mechanism with PACs Constipation Urinary retention Hypertension Hyperlipidemia PLAN: Echo with preserved EF. Continue telemetry monitoring. [id number] score is 3, recommend anticoagulation for stroke risk reduction, co ntinue Eliquis 5 mg twice a day. Metoprolol tartrate 25 mg twice a day. Patient may be discharged home from a cardiac standpoint. He is to follow-up post discharge with Dr. Mathews in 1-2 weeks. Nurse practitioner note has been reviewed by physician. Signing provider agrees with the documented findings, assessment, and plan of care documented by [employer] as a scribe. Objective - Vital Signs Vital signs: Vital Signs Temp 98 F 06/03/23 08:00 Pulse 73 06/03/23 12:00 Resp 16 06/03/23 12:00 BP 129/79 06/03/23 12:00 Pulse Ox 96 06/03/23 12:00 FiO2 Intake & Output 06/02/23 06/03/23 06/03/23 18:59 06:59 18:59 Intake Total 1134 Output Total 1100 1425 Balance -1100 -291 Weight 82.554 kg Intake: Oral 1134 Output: Urine 1100 1425 Other: Voiding Method Indwelling Catheter Indwelling Catheter Indwelling Catheter # Bowel Movements 1 - Labs CBC & Chem 7: 06/02/23 07:32 06/01/23 21:06
[2023-06-03] MEDS: TAMSULOSIN 0.4 MG CAP.ER.24H PO SCH (17:34)
[2023-06-04 07:16] VITALS: BP 116/74; PULSE 77; TEMP 98.8
--- NOTE | 2023-06-04 13:21 | P.DS ---
Providers Date of admission: 06/01/23 22:27 Expected date of discharge: 06/04/23 Attending physician: Madelyn Crook Consults: 06/01/23 22:21 Consult Physician Stat Consulting Provider: [facility] Consult Reason/Comments: New onset A-fib Do you want consulting provider notified?: Yes 06/03/23 08:41 Consult Physician Routine Consulting Provider: Leroy Yip Consult Reason/Comments: urinary retention Do you want consulting provider notified?: Yes Primary care physician: Sriram Solis Hospital Course: Discharge diagnoses; Paroxysmal atrial fibrillation Constipation Hypertension Hyperlipidemia Urinary retention Hospital course; patient is a 78-year-old gentleman past medical history significant for hypertension, hyperlipidemia who was brought to the ER for constipation. Patient stated that he was all right 4 days back when he started noticing that he was getting constipation. Patient was passing gas but not having any bowel movement. There was no complaint of abdominal pain. Patient denies any nausea or vomiting. Patient was also having a hard time peeing. There was no complaint of burning micturition. Patient did use [id number] stool softeners without any success. Because of this, patient came to the ER Initial lab work done in the ER showed WBC 11.3, hemoglobin 16.3, platelet count 264, sodium 136, potassium 4.1, BUN 15, creatinine 0.68, troponin 0.012 UA negative for any infection EKG done in the ER showed heart rate of 110, no P waves, irregular, no ST segment elevation or depression seen, no T-wave inversions seen. Chest x-ray done in the ER showed no acute cardiopulmonary process X-ray KUB done showed nonspecific abdomin without evidence of free air or obstruction Patient admitted to internal medicine service 06/03. Patient seen and examined. Patient was evaluated by cardiology, they recommend keeping patient on Eliquis and Lopressor. 2D echo done showed LVEF of 55%, no mitral regurg, mild tricuspid regurg. Patient was also seen by urology, recommend outpatient follow-up, patient started on Flomax PHYSICAL EXAMINATION: GENERAL: The patient is alert and oriented x3, not in any acute distress. Well developed, well nourished. HEENT: Pupils are round and equally reacting to light. EOMI. No scleral icterus. No conjunctival pallor. Normocephalic, atraumatic. No pharyngeal erythema. No thyromegaly. CARDIOVASCULAR: S1 and S2 present. No murmurs, rubs, or gallops. PULMONARY: Chest is clear to auscultation, no wheezing or crackles. ABDOMEN: Soft, nontender, nondistended, normoactive bowel sounds. No palpable organomegaly. MUSCULOSKELETAL: No joint swelling or deformity. EXTREMITIES: No cyanosis, clubbing, or pedal edema. NEUROLOGICAL: Gross neurological examination did not reveal any focal deficits. SKIN: No rashes. Dictation was produced using [employer] dictation software. please excuse any grammatical, word or spelling errors. Patient Condition at Discharge: Fair Plan - Discharge Summary Discharge Rx Participant: No New Discharge Prescriptions: New Metoprolol Tartrate [Lopressor] 25 mg PO BID #60 tab Apixaban [Eliquis] 5 mg PO BID #60 tab Tamsulosin [Flomax] 0.4 mg PO PC-SUPPER #30 cap Continue Lovastatin [Mevacor] 10 mg PO HS Discontinued lisinopriL [Zestril] 10 mg PO DAILY Discharge Medication List Lovastatin [Mevacor] 10 mg PO HS 06/01/23 [History] Apixaban [Eliquis] 5 mg PO BID #60 tab 06/04/23 [Rx] Metoprolol Tartrate [Lopressor] 25 mg PO BID #60 tab 06/04/23 [Rx] Tamsulosin [Flomax] 0.4 mg PO PC-SUPPER #30 cap 06/04/23 [Rx] Follow up Appointment(s)/Referral(s): Sriram Solis MD [Primary Care Provider] - 1-2 days Julian Mathews DO [STAFF PHYSICIAN] - 1 Week Discharge Disposition: HOME SELF-CARE
== END 2023-06-04 15:39 | disposition home or self-care (01) ==
LOC: SUPCPDRO 19:50 → EC 19:50 → 3SCARD 22:27
PROVIDERS: ADMIT Hospitalist; ATTEND Hospitalist
DX: I48.0 Paroxysmal atrial fibrillation (principal); I10 Essential (primary) hypertension; N40.1 Benign prostatic hyperplasia with lower urinary tract symptoms; R33.8 Other retention of urine; N13.8 Other obstructive and reflux uropathy; K59.00 Constipation, unspecified; E78.5 Hyperlipidemia, unspecified; Z79.899 Other long term (current) drug therapy
CPT/HCPCS: 96376; 96368; 96361; 96365; 96366; 99285; 51798; 36415; 93005; 83880; 80053; 84443; 84484; 85025 ×2; 85610 ×2; 85730 ×2; 81003; 71046; 74018; G0378 ×4; C8929; Q9957; J1644 ×2; 93306

== ENCOUNTER 2023-06-09 15:05 | Emergency (ER) | payer MEDICARE ==
--- NOTE | 2023-06-09 16:04 | ED ---
General Adult HPI - General Chief complaint: Urogenital Stated complaint: Blood in Urine Time Seen by Provider: 06/09/23 15:12 Source: patient, RN notes reviewed Mode of arrival: ambulatory Limitations: no limitations - History of Present Illness Initial comments: 78-year-old male presents to the emergency department for evaluation of hematuria. He states that this has been going on for around 3 days. He notes that he had a Berger catheter placed around 1 week ago for urinary retention. He reports that he is supposed to follow-up with Dr. Barnes early next week. States he is otherwise feeling well. He notices some pain at the catheter site. Denies suprapubic pain, fevers, nausea, vomiting. - Related Data Home Medications Medication Instructions Recorded Confirmed Lovastatin [Mevacor] 10 mg PO HS 06/01/23 06/01/23 Previous Rx's Medication Instructions Recorded Apixaban [Eliquis] 5 mg PO BID #60 tab 06/04/23 Docusate [Colace] 100 mg PO BID #60 cap 06/04/23 Metoprolol Tartrate [Lopressor] 25 mg PO BID #60 tab 06/04/23 Tamsulosin [Flomax] 0.4 mg PO PC-SUPPER #30 cap 06/04/23 polyethylene glycoL 3350 [Miralax] 17 gm PO BID #30 packet 06/04/23 Cephalexin [Keflex] 500 mg PO BID #14 cap 06/09/23 Allergies Allergy/AdvReac Type Severity Reaction Status Date / Time No Known Allergies Allergy Verified 06/09/23 19:42 Review of Systems ROS Statement: Those systems with pertinent positive or pertinent negative responses have been documented in the HPI. ROS Other: All systems not noted in ROS Statement are negative. 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 History of Any Multi-Drug Resistant Organisms: None Reported Past Surgical History: Cholecystectomy, Hernia Repair, Orthopedic Surgery Additional Past Surgical History / Comment(s): colonoscopy 04/2023, back surgery x2, rhinoplasty Past Anesthesia/Blood Transfusion Reactions: No Reported Reaction Past Psychological History: No Psychological Hx Reported Smoking Status: Never smoker Past Alcohol Use History: None Reported Past Drug Use History: None Reported - Past Family History Father Family Medical History: Cancer Additional Family Medical History / Comment(s): jaw CA Mother Family Medical History: Cancer Additional Family Medical History / Comment(s): uterine CA General Exam Limitations: no limitations General appearance: alert, in no apparent distress Head exam: Present: atraumatic, normocephalic, normal inspection Eye exam: Present: normal appearance, PERRL, EOMI. Absent: scleral icterus, conjunctival injection, periorbital swelling ENT exam: Present: normal exam, mucous membranes moist Neck exam: Present: normal inspection. Absent: tenderness, meningismus, lymphadenopathy Respiratory exam: Present: normal lung sounds bilaterally. Absent: respiratory distress, wheezes, rales, rhonchi, stridor Cardiovascular Exam: Present: regular rate, normal rhythm, normal heart sounds. Absent: systolic murmur, diastolic murmur, rubs, gallop, clicks GI/Abdominal exam: Present: soft, normal bowel sounds. Absent: distended, tenderness, guarding, rebound, rigid Extremities exam: Present: normal inspection, full ROM, normal capillary refill. Absent: tenderness, pedal edema, joint swelling, calf tenderness Back exam: Present: normal inspection Neurological exam: Present: alert, oriented X3 Psychiatric exam: Present: normal affect, normal mood Skin exam: Present: warm, dry, intact, normal color. Absent: rash Course Vital Signs 06/09/23 06/09/23 15:07 18:08 Temperature 98.5 F 98.2 F Pulse Rate 80 76 Respiratory 20 16 Rate Blood Pressure 113/71 118/70 O2 Sat by Pulse 99 99 Oximetry Medical Decision Making - Medical Decision Making Was pt. sent in by a medical professional or institution (, PA, PARTS ROOM ASSISTANT, urgent care, hospital, or half-way...) When possible be specific @ -No Did you speak to anyone other than the patient for history (EMS, parent, family, police, friend...)? What history was obtained from this source @ -No Did you review nursing and triage notes (agree or disagree)? Why? @ -I reviewed and agree with nursing and triage notes Were old charts reviewed (outside hosp., previous admission, EMS record, old EKG, old radiological studies, urgent care reports/EKG's, half-way records)? Report findings @ -No old charts were reviewed Differential Diagnosis (chest pain, altered mental status, abdominal pain women, abdominal pain men, vaginal bleeding, weakness, fever, dyspnea, syncope, headache, dizziness, GI bleed, back pain, seizure, CVA, palpatations, mental health, musculoskeletal)? @ -Hematuria, UTI, kidney stone, this list is not all inclusive EKG interpreted by me (3pts min.). @ -None X-rays interpreted by me (1pt min.). @ -None done CT interpreted by me (1pt min.). @ -None done U/S interpreted by me (1pt. min.). @ -None done What testing was considered but not performed or refused? (CT, X-rays, U/S, labs)? Why? @ -None What meds were considered but not given or refused? Why? @ -None Did you discuss the management of the patient with other professionals (professionals i.e. , PA, PARTS ROOM ASSISTANT, lab, RT, psych nurse, protective services social worker, baby formula mixer, teacher, debt recovery officer, rn case manager)? Give summary @ -No Was smoking cessation discussed for >3mins.? @ -No Was critical care preformed (if so, how long)? @ -No Were there social determinants of health that impacted care today? How? (Homelessness, low income, unemployed, alcoholism, drug addiction, transportation, low edu. Level, literacy, decrease access to med. care, senior care, rehab)? @ -No Was there de-escalation of care discussed even if they declined (Discuss DNR or withdrawal of care, Hospice)? DNR status @ -No What co-morbidities impacted this encounter? (DM, HTN, Smoking, COPD, CAD, Cancer, CVA, ARF, Chemo, Hep., AIDS, mental health diagnosis, sleep apnea, morbid obesity)? @ -None Was patient admitted / discharged? Hospital course, mention meds given and route, prescriptions, significant lab abnormalities, going to OR and other pertinent info. @ -Discharge. Patient presented to the emergency department for evaluation of hematuria. Symptoms have been going on since 2 days. Discomfort at the site of the Berger catheter. The Berger catheter was pulled and the patient was able to urinate without difficulty. Postvoid bladder scan showed 57 cc. Patient was able to urinate again prior to DC. Discussed replacing berger catheter vs trial at home. Patient is to follow up with Dr. Barnes early next week. Patient will be started on antibiotics for UTI based on urine bacteria and WBCs. Patient understanding and agreeable with plan. Patient stable at time of discharge. Case discussed with Dr. Moscoso Undiagnosed new problem with uncertain prognosis? @ -No Drug Therapy requiring intensive monitoring for toxicity (Heparin, Nitro, Insulin, Cardizem)? @ -No Were any procedures done? @ -No Diagnosis/symptom? @ -Hematuria, indwelling Berger catheter Acute, or Chronic, or Acute on Chronic? @ -Acute Uncomplicated (without systemic symptoms) or Complicated (systemic symptoms)? @ -Uncomplicated Side effects of treatment? @ -No Exacerbation, Progression, or Severe Exacerbation? @ -No Poses a threat to life or bodily function? How? (Chest pain, USA, ID, pneumonia, PE, COPD, DKA, ARF, appy, cholecystitis, CVA, Diverticulitis, Homicidal, Suicidal, threat to staff... and all critical care pts) @ -No - Lab Data Lab Results 06/09/23 Range/Units 16:06 Urine Color Light Red Urine Appearance Cloudy (Clear) Urine pH 6.0 (5.0-8.0) Ur Specific [place] 1.009 (1.001-1.035) Urine Protein 1+ H (Negative) Urine Glucose (UA) Negative (Negative) Urine Ketones Negative (Negative) Urine Blood Large H (Negative) Urine Nitrite Negative (Negative) Urine Bilirubin Negative (Negative) Urine Urobilinogen <2.0 (<2.0) mg/dL Ur Leukocyte Esterase Large H (Negative) Urine RBC >182 H (0-5) /hpf Urine WBC 50 H (0-5) /hpf Ur Squamous Epith Cells <1 (0-4) /hpf Amorphous Sediment Rare H (None) /hpf Urine Bacteria Rare H (None) /hpf Disposition Clinical Impression: UTI (urinary tract infection) Disposition: HOME SELF-CARE Condition: Stable Instructions (If sedation given, give patient instructions): Urinary Tract Infection in Men (ED) Additional Instructions: Please follow up with Dr. Barnes. Monitor your urine output. Return to the emergency department if you are no longer able to urinate or develop any other symptoms. Prescriptions: Cephalexin [Keflex] 500 mg PO BID #14 cap Is patient prescribed a controlled substance at d/c from ED?: No Referrals: Sriram Solis MD [Primary Care Provider] - 1-2 days
[2023-06-09 16:53] LABS: Amorphous Sediment,Urine Rare /hpf; Appearance,Urine Cloudy (Clear); Bacteria,Urine Rare /hpf; Bilirubin,Urine Negative (Negative); Blood,Urine Large (Negative); Color,Urine Light Red; Glucose,Urine (UA) Negative (Negative); Ketones,Urine Negative (Negative); Leukocyte Esterase,Urine Large (Negative); Nitrite,Urine Negative (Negative); Protein,Urine 1+ (Negative); RBC,Urine >182 /hpf (0-5); Specific Gravity,Urine 1.009 (1.001-1.035); Squamous Epithelial Cell,Urine <1 /hpf (0-4); Urobilinogen,Urine <2.0 mg/dL (<2.0); WBC,Urine 50 /hpf (0-5)
[2023-06-09] MEDS: CEPHALEXIN 500MG STARTER PACK 4 CAP BTL PO STA (17:51)
[2023-06-09 18:14] VITALS: BP 118/70; PULSE 76; RESP 16; TEMP 98.2
== END 2023-06-09 17:53 | disposition home or self-care (01) ==
LOC: EC 15:05
DX: N39.0 Urinary tract infection, site not specified (principal); Z90.49 Acquired absence of other specified parts of digestive tract
CPT/HCPCS: 51798; 81001; 87077; 87086; 87186; 99283